=== PATIENT | male | born 1975 | race Caucasian/White ===

== ENCOUNTER 2019-05-10 23:00 | Emergency (ER) | payer SELFPAY, OTHER ==
[2019-05-11 01:10] LABS: BARBITURATES Negative (NEGATIVE); BENZODIAZEPINES Negative (NEGATIVE); CANNABINOIDS Negative (NEGATIVE); OPIATES Negative (NEGATIVE)
[2019-05-11 01:14] LABS: AMPHETAMINE/METHAMPHETAMINE POSITIVE (NEGATIVE); COCAINE Positive (NEGATIVE)
[2019-05-11] MEDS: LORAZEPAM 1 MG TAB PO ×2 (01:27→01:28)
[2019-05-11] MEDS: RISPERIDONE 0.25 MG TAB PO (01:46)
[2019-05-11 02:19] LABS: ETHANOL < 10.0 mg/dl (0-0)
== END 2019-05-11 03:00 | disposition home or self-care (01) ==
LOC: E/R 23:00
DX: F19.951 Other psychoactive substance use, unspecified with psychoactive substance-induced psychotic disorder with hallucinations (principal); F15.10 Other stimulant abuse, uncomplicated; F17.210 Nicotine dependence, cigarettes, uncomplicated; R40.2142 Coma scale, eyes open, spontaneous, at arrival to emergency department; R40.2252 Coma scale, best verbal response, oriented, at arrival to emergency department; R40.2362 Coma scale, best motor response, obeys commands, at arrival to emergency department
CPT/HCPCS: 36415; 80307; 93005; 99284-25